=== PATIENT | female | born 1950 | race Caucasian/White ===

== ENCOUNTER 2021-05-08 | Outpatient (CLI) | payer MEDICARE, OTHER | END 2021-05-08 09:47 | disposition home or self-care (01) | DX: Z12.31 Encounter for screening mammogram for malignant neoplasm of breast (principal); Z98.890 Other specified postprocedural states; Z80.3 Family history of malignant neoplasm of breast | CPT/HCPCS: 77063; 77067 ==

== ENCOUNTER 2022-09-03 09:34 | Outpatient (CLI) | payer MEDICARE, OTHER | END 2022-09-03 09:35 | disposition home or self-care (01) | LOC: BICRAD 09:34 | PROVIDERS: ATTEND Family Medicine | DX: M25.561 Pain in right knee (principal); E11.9 Type 2 diabetes mellitus without complications; R19.7 Diarrhea, unspecified | CPT/HCPCS: 80053; 80061; 82043; 83036; 83516 ==

== ENCOUNTER 2022-12-03 10:34 | Outpatient (CLI) | payer MEDICARE ==
[2022-12-03] MEDS ORDERED: Iopamidol-370 76% 500 ML 1 ML ONE (17:21)
== END 2022-12-03 10:35 | disposition home or self-care (01) ==
LOC: BICCT 10:34
PROVIDERS: ATTEND Physician Assistant Medical
DX: K59.00 Constipation, unspecified (principal); R10.31 Right lower quadrant pain; K21.9 Gastro-esophageal reflux disease without esophagitis
CPT/HCPCS: 74177; 82565; Q9967

== ENCOUNTER 2024-03-04 14:48 | Outpatient (CLI) | payer MEDICARE, OTHER | END 2024-03-04 14:49 | disposition home or self-care (01) | LOC: BICMAMMO 14:48 | PROVIDERS: ATTEND Family Medicine | DX: Z12.31 Encounter for screening mammogram for malignant neoplasm of breast (principal); Z13.820 Encounter for screening for osteoporosis; M85.851 Other specified disorders of bone density and structure, right thigh; M85.852 Other specified disorders of bone density and structure, left thigh; Z78.0 Asymptomatic menopausal state; Z80.3 Family history of malignant neoplasm of breast; Z98.890 Other specified postprocedural states | CPT/HCPCS: 77063; 77067; 77080 ==